=== PATIENT | female | born 1945 | race Caucasian/White ===

== ENCOUNTER 2016-11-24 13:29 | Outpatient (CLI) | payer MEDICARE ==
[2016-11-24 13:58] LABS: Hemoglobin 12.2 g/dL (12.0-16.0)
[2016-11-25 19:21] LABS: HBCM Index 0.11 S/CO (0-0.79); HBSAg Index 0.37 S/CO (0-0.99); Hep A IgM AB Non-Reactive (NonReactive); Hep A IgM S/CO 0.11 S/CO (0-0.79); Hep B Surf Ag Non-Reactive S/CO (NonReactive); Hep C IgG Ab Non-Reactive (NonReactive); Hep C Index 0.07 S/CO (0-0.79); Hepatitis B Core IGM Abs Non-Reactive (NonReactive)
[2016-11-27 07:22] LABS: Antinuclear AB Negative (Negative)
[2016-11-29 12:11] LABS: Mitochondrial (M2) Antibody 5.5 Units (0.0-20.0)
== END 2016-11-24 13:30 | disposition home or self-care (01) ==
LOC: MADLAB 13:29
PROVIDERS: ATTEND Internal Medicine Gastroenterology
DX: D50.9 Iron deficiency anemia, unspecified (principal); R74.8 Abnormal levels of other serum enzymes
CPT/HCPCS: 36415; 80074; 83516; 85014; 85018; 86038

== ENCOUNTER 2017-04-06 14:17 | Emergency (ER) | payer MEDICARE | END 2017-04-06 14:45 | disposition home or self-care (01) | LOC: MADERS 14:17 | DX: S00.03XA Contusion of scalp, initial encounter (principal); I10 Essential (primary) hypertension; V89.0XXA Person injured in unspecified motor-vehicle accident, nontraffic, initial encounter; I25.10 Atherosclerotic heart disease of native coronary artery without angina pectoris; E11.9 Type 2 diabetes mellitus without complications; G40.909 Epilepsy, unspecified, not intractable, without status epilepticus | CPT/HCPCS: 99283 ==

== ENCOUNTER 2018-06-25 13:00 | Emergency (ER) | payer MEDICARE, OTHER ==
[2018-06-25] MEDS ORDERED: Ibuprofen 400 MG TAB ONE (13:27)
[2018-06-25] MEDS ORDERED: HYDROcodone/Acetaminophen 5/325 mg Tablet ONE (13:27)
--- NOTE | 2018-06-25 13:48 | RAD ---
FOUR VIEWS OF THE LEFT ELBOW: DATE: 06/25/18. COMPARISON: None. HISTORY: Fall with pain. FINDINGS: The lateral examination demonstrates no definite elbow joint effusion. No displaced fracture or evid ence of dislocation is seen. IMPRESSION: No displaced fracture or definite elbow joint effusion. A followup study in 7-10 days may be benefic ial if symptoms persist. POS: MERI
== END 2018-06-25 14:10 | disposition home or self-care (01) ==
LOC: MADERS 13:00
DX: S50.02XA Contusion of left elbow, initial encounter (principal); I25.10 Atherosclerotic heart disease of native coronary artery without angina pectoris; R73.03 Prediabetes; G40.909 Epilepsy, unspecified, not intractable, without status epilepticus; Z79.899 Other long term (current) drug therapy; W18.30XA Fall on same level, unspecified, initial encounter

== ENCOUNTER 2018-10-02 13:21 | Inpatient (IN) | payer MEDICARE ==
[2018-10-02] MEDS: Calcium Carbonate + Vit D 1 TAB PO SCH (20:16)
[2018-10-02] MEDS: Famotidine 20 MG TAB PO SCH (20:16)
[2018-10-02] MEDS: DILANTIN 100 MG PO SCH (20:21)
--- NOTE | 2018-10-03 03:34 | HP ---
ADMITTING PHYSICIAN: Josi Randle MD PRIMARY CARE PHYSICIAN: Mona Covington, nurse practitioner. REASON FOR ADMISSION: For skilled rehabilitation at [facility], status post physical deconditioning due to ataxia secondary to Dilantin toxicity. HISTORY OF PRESENT ILLNESS: Ms. Aggarwal is a 73-year-old female, who has a history of epilepsy and on Dilantin for a longtime. The patient lives at home with her and daughter. She states that for the past couple of weeks, she had noted some gait imbalance needing her to require assistance for ambulation and she also noted some tremors, so the patient presented to the emergency room on 09/28/2018. The patient was admitted on the neurological floor. Initial CT of the brain and chest x-ray were unremarkable. MRI of the brain was also negative. Echocardiogram was normal, and neurologist was consulted and the patient was noted to have Dilantin toxicity causing the ataxia. The patient's Dilantin 200 mg twice a day was held. They noted that toxicity was most likely secondary to recent levothyroxine causing drug-drug interaction. The patient had been on long-time Dilantin and did not want to change this medicine, so Dilantin was held while levels were monitored closely. The patient's gait improved, and her Dilantin level slowly improved also. By day of discharge from [facility], her Dilantin level decreased to 20.8. The patient, under the care of the neurologist, was restarted on Dilantin 100 mg p.o. b.i.d. During hospitalization, she was also noted to have elevated blood pressure. Hydrochlorothiazide was increased, and amlodipine was also added. Due to physical deconditioning, the decision was made to transfer the patient for inpatient rehabilitation at [facility]. Upon evaluation of the patient today, she denied any concern. She was happy to be in facility. She denies any headache, chest pain, shortness of breath, or dizziness. She is excited to start physical therapy prior to return to her home. She states prior to having the gait imbalance, she was able to ambulate without a walker, she was able to drive, she was able to move around, and she is excited to restart therapy and regain all her strength and mobility back. PAST MEDICAL HISTORY: Hypothyroidism, hypertension, dyslipidemia, and epilepsy. PAST SURGICAL HISTORY: CABG in 2004, cholecystectomy, x2, and appendectomy. ALLERGIES: NO KNOWN DRUG ALLERGIES. MEDICATIONS: 1. Amlodipine 10 mg daily. 2. Lisinopril 40 daily. 3. Levothyroxine 25 mcg daily. 4. Vitamin B12 of 500 mcg daily. 5. Vitamin D3 of 5000 daily. 6. Calcium with vitamin D one tablet b.i.d. 7. Aspirin 81 mg daily. 8. Lipitor 10 mg daily. 9. Dilantin 100 mg b.i.d. 10. Hydrochlorothiazide 25 mg daily. 11. Folic acid 1 mg p.o. daily. CODE STATUS: The patient is a full code. SOCIAL HISTORY: The patient lives in a small trailer house with her family. She denies any tobacco, alcohol, or illicit drug use. FAMILY HISTORY: Positive for diabetes, heart disease in several family members , and her mother had lung cancer. PHYSICAL EXAMINATION: VITAL SIGNS: Temperature 98.3, pulse 80, respirations 18, O2 sat 99% on room air, and blood pressure 156/71. GENERAL: The patient is alert, awake, and oriented x3. No acute distress. Sitting up in her bedside. HEENT: Normocephalic, atraumatic. Pupils are round and reactive to light. Sclerae anicteric. NECK: Supple. No JVD. No thyromegaly. No carotid bruit. LUNGS: Clear to ascultation bilaterally. No rhonchi or rales. HEART: S1 and S2 regular. No murmurs, gallops, or rubs. ABDOMEN: Positive bowel sounds. Soft, nontender, and nondistended. No organomegaly. BACK: Unremarkable. No CVA tenderness. EXTREMITIES: No calf edema or swelling. No erythema. SKIN: No skin rash. NEUROLOGICAL: The patient is alert, awake, and oriented x3. Cranial nerves 2 through 12 grossly intact. No focal deficits. REVIEW OF SYSTEMS: GENERAL: The patient denies any fever or chills. Complains of generalized weakness. HEENT: Denies nasal congestion, nosebleed, trouble swallowing, or oral pain. CHEST: Denies chest pain, shortness of breath, palpitation, or dizziness. RESPIRATORY: Denies cough, shortness of breath, or wheezing. ABDOMEN: Denies abdominal pain, nausea, vomiting, or constipation. GENITOURINARY: Denies dysuria or hematuria. NEUROLOGIC: No focal deficits. PSYCHIATRY: No hallucination or delusion. SKIN: No bruising or easy bleeding. ASSESSMENT: 1. Physical deconditioning. 2. Ataxia due to Dilantin toxicity, improving. 3. Hypertension, improving. 4. Hypothyroidism. 5. Epilepsy. 6. Dyslipidemia. 7. Gait instability. PLAN: The patient is being admitted to [facility] for skilled rehabilitation and gait strengthening. We will consult Physical Therapy for strengthening and in order to get modified independence with her gait and Occupational Therapy to help with activities of daily living. We will restart the patient's Dilantin at 100 b.i.d. We will monitor levels closely. We will place the patient on seizure precautions. We will resume all home medications. We will monitor her blood pressure closely due to the new increase in her hydrochlorothiazide and addition of amlodipine. We will place the patient on Pepcid for GI prophylaxis and compression stockings for DVT prophylaxis. ESTIMATED LENGTH OF STAY: 1 to 2 weeks. DISPOSITION: Home. CODE STATUS: Full code. Job ID: [id number] [id number]
[2018-10-03] MEDS: Levothyroxine Sodium 25 MCG TAB PO SCH (05:22)
[2018-10-03] MEDS: Amlodipine 5 MG TAB PO SCH (08:08)
[2018-10-03] MEDS: Folic Acid 1 MG TAB PO SCH (08:08)
[2018-10-03] MEDS: Aspirin 81 mg Enteric Coated Tablet PO SCH (08:08)
[2018-10-03] MEDS: Lisinopril 10 MG TAB PO SCH (08:11)
[2018-10-03] MEDS: Cyanocobalamin (Vitamin B-12) 1,000 MCG TAB PO SCH (08:11)
[2018-10-03] MEDS: Famotidine 20 MG TAB PO SCH ×2 (08:11→20:50)
[2018-10-03] MEDS: Atorvastatin Calcium 10 MG TAB PO SCH (08:11)
[2018-10-03] MEDS: DILANTIN 100 MG PO SCH ×2 (08:12→20:51)
[2018-10-03] MEDS: Calcium Carbonate + Vit D 1 TAB PO SCH ×2 (08:12→20:50)
[2018-10-03] MEDS: Acetaminophen 325 MG TAB PO PRN ×2 (11:44→20:52)
[2018-10-03] MEDS: Ondansetron ODT 4 MG TAB PO PRN (14:02)
[2018-10-03] MEDS: Ibuprofen 800 MG TAB PO PRN (15:22)
[2018-10-04] MEDS: Levothyroxine Sodium 25 MCG TAB PO SCH (05:11)
[2018-10-04] MEDS: Cyanocobalamin (Vitamin B-12) 1,000 MCG TAB PO SCH (08:30)
[2018-10-04] MEDS: Lisinopril 10 MG TAB PO SCH (08:30)
[2018-10-04] MEDS: Folic Acid 1 MG TAB PO SCH (08:31)
[2018-10-04] MEDS: Atorvastatin Calcium 10 MG TAB PO SCH (08:31)
[2018-10-04] MEDS: Calcium Carbonate + Vit D 1 TAB PO SCH ×2 (08:31→20:06)
[2018-10-04] MEDS: Amlodipine 5 MG TAB PO SCH (08:31)
[2018-10-04] MEDS: Famotidine 20 MG TAB PO SCH ×2 (08:31→20:06)
[2018-10-04] MEDS: DILANTIN 100 MG PO SCH ×2 (08:31→20:06)
[2018-10-04] MEDS: Aspirin 81 mg Enteric Coated Tablet PO SCH (08:31)
[2018-10-04] MEDS: Ibuprofen 800 MG TAB PO PRN (22:23)
[2018-10-05] MEDS: Levothyroxine Sodium 25 MCG TAB PO SCH (05:42)
[2018-10-05] MEDS: Lisinopril 10 MG TAB PO SCH (08:48)
[2018-10-05] MEDS: DILANTIN 100 MG PO SCH (08:48)
[2018-10-05] MEDS: Cyanocobalamin (Vitamin B-12) 1,000 MCG TAB PO SCH (08:49)
[2018-10-05] MEDS: Amlodipine 5 MG TAB PO SCH (08:50)
[2018-10-05] MEDS: Famotidine 20 MG TAB PO SCH ×2 (08:50→20:32)
[2018-10-05] MEDS: Aspirin 81 mg Enteric Coated Tablet PO SCH (08:50)
[2018-10-05] MEDS: Calcium Carbonate + Vit D 1 TAB PO SCH ×2 (08:50→20:32)
[2018-10-05] MEDS: Folic Acid 1 MG TAB PO SCH (08:50)
[2018-10-05] MEDS: Atorvastatin Calcium 10 MG TAB PO SCH (08:53)
[2018-10-05] MEDS: Ondansetron ODT 4 MG TAB PO PRN ×2 (10:20→20:37)
[2018-10-05] MEDS: PATIENT'S HOME MEDICATION PO SCH ×2 (14:48→20:32)
[2018-10-05] MEDS: Acetaminophen 325 MG TAB PO PRN (20:36)
[2018-10-06] MEDS: Levothyroxine Sodium 25 MCG TAB PO SCH (05:15)
[2018-10-06] MEDS: Atorvastatin Calcium 10 MG TAB PO SCH (08:55)
[2018-10-06] MEDS: Calcium Carbonate + Vit D 1 TAB PO SCH ×2 (08:56→20:30)
[2018-10-06] MEDS: Aspirin 81 mg Enteric Coated Tablet PO SCH (08:56)
[2018-10-06] MEDS: Cyanocobalamin (Vitamin B-12) 1,000 MCG TAB PO SCH (08:56)
[2018-10-06] MEDS: Famotidine 20 MG TAB PO SCH ×2 (08:57→20:30)
[2018-10-06] MEDS: Amlodipine 5 MG TAB PO SCH (08:57)
[2018-10-06] MEDS: Lisinopril 10 MG TAB PO SCH (08:57)
[2018-10-06] MEDS: Folic Acid 1 MG TAB PO SCH (08:58)
[2018-10-06] MEDS: PATIENT'S HOME MEDICATION PO SCH ×3 (08:59→20:30)
[2018-10-06] MEDS: Acetaminophen 325 MG TAB PO PRN (22:15)
[2018-10-06] MEDS: Melatonin 3 MG TAB PO SCH (22:15)
[2018-10-07] MEDS: Levothyroxine Sodium 25 MCG TAB PO SCH (05:23)
[2018-10-07] MEDS: PATIENT'S HOME MEDICATION PO SCH ×3 (08:35→20:38)
[2018-10-07] MEDS: Lisinopril 10 MG TAB PO SCH (08:36)
[2018-10-07] MEDS: Famotidine 20 MG TAB PO SCH ×2 (08:36→20:34)
[2018-10-07] MEDS: Calcium Carbonate + Vit D 1 TAB PO SCH ×2 (08:36→20:34)
[2018-10-07] MEDS: Aspirin 81 mg Enteric Coated Tablet PO SCH (08:37)
[2018-10-07] MEDS: Folic Acid 1 MG TAB PO SCH (08:37)
[2018-10-07] MEDS: Cyanocobalamin (Vitamin B-12) 1,000 MCG TAB PO SCH (08:37)
[2018-10-07] MEDS: Amlodipine 5 MG TAB PO SCH (08:38)
[2018-10-07] MEDS: Atorvastatin Calcium 10 MG TAB PO SCH (08:38)
[2018-10-07] MEDS: Melatonin 3 MG TAB PO SCH (20:34)
[2018-10-07] MEDS: Acetaminophen 325 MG TAB PO PRN (20:37)
[2018-10-08] MEDS: Levothyroxine Sodium 25 MCG TAB PO SCH (05:14)
[2018-10-08] MEDS: Lisinopril 10 MG TAB PO SCH (08:26)
[2018-10-08] MEDS: Amlodipine 5 MG TAB PO SCH (08:26)
[2018-10-08] MEDS: Aspirin 81 mg Enteric Coated Tablet PO SCH (08:27)
[2018-10-08] MEDS: Folic Acid 1 MG TAB PO SCH (08:27)
[2018-10-08] MEDS: Famotidine 20 MG TAB PO SCH ×2 (08:27→20:16)
[2018-10-08] MEDS: Cyanocobalamin (Vitamin B-12) 1,000 MCG TAB PO SCH (08:27)
[2018-10-08] MEDS: Calcium Carbonate + Vit D 1 TAB PO SCH ×2 (08:27→20:16)
[2018-10-08] MEDS: PATIENT'S HOME MEDICATION PO SCH ×3 (08:28→20:17)
[2018-10-08] MEDS: Atorvastatin Calcium 10 MG TAB PO SCH (08:28)
[2018-10-08] MEDS: Melatonin 3 MG TAB PO SCH (20:16)
[2018-10-08] MEDS: Acetaminophen 325 MG TAB PO PRN (20:18)
[2018-10-09] MEDS: Levothyroxine Sodium 25 MCG TAB PO SCH (05:22)
[2018-10-09] MEDS: Lisinopril 10 MG TAB PO SCH (08:22)
[2018-10-09] MEDS: PATIENT'S HOME MEDICATION PO SCH ×3 (08:22→20:54)
[2018-10-09] MEDS: Folic Acid 1 MG TAB PO SCH (08:23)
[2018-10-09] MEDS: Aspirin 81 mg Enteric Coated Tablet PO SCH (08:23)
[2018-10-09] MEDS: Amlodipine 5 MG TAB PO SCH (08:24)
[2018-10-09] MEDS: Calcium Carbonate + Vit D 1 TAB PO SCH ×2 (08:24→20:53)
[2018-10-09] MEDS: Atorvastatin Calcium 10 MG TAB PO SCH (08:25)
[2018-10-09] MEDS: Cyanocobalamin (Vitamin B-12) 1,000 MCG TAB PO SCH (08:25)
[2018-10-09] MEDS: Famotidine 20 MG TAB PO SCH ×2 (08:25→20:53)
[2018-10-09] MEDS: Acetaminophen 325 MG TAB PO PRN ×2 (14:55→20:55)
[2018-10-09] MEDS: Melatonin 3 MG TAB PO SCH (20:53)
[2018-10-10] MEDS: Levothyroxine Sodium 25 MCG TAB PO SCH (06:08)
[2018-10-10] MEDS: Cyanocobalamin (Vitamin B-12) 1,000 MCG TAB PO SCH (08:31)
[2018-10-10] MEDS: Lisinopril 10 MG TAB PO SCH (08:31)
[2018-10-10] MEDS: Aspirin 81 mg Enteric Coated Tablet PO SCH (08:32)
[2018-10-10] MEDS: Calcium Carbonate + Vit D 1 TAB PO SCH ×2 (08:32→20:51)
[2018-10-10] MEDS: Folic Acid 1 MG TAB PO SCH (08:32)
[2018-10-10] MEDS: Atorvastatin Calcium 10 MG TAB PO SCH (08:32)
[2018-10-10] MEDS: Amlodipine 5 MG TAB PO SCH (08:32)
[2018-10-10] MEDS: PATIENT'S HOME MEDICATION PO SCH ×3 (08:32→20:51)
[2018-10-10] MEDS: Famotidine 20 MG TAB PO SCH ×2 (08:32→20:51)
[2018-10-10] MEDS ORDERED: Bisacodyl 10 MG SUPP PR PRN (17:54)
[2018-10-10] MEDS: Melatonin 3 MG TAB PO SCH (20:51)
[2018-10-10] MEDS: Acetaminophen 325 MG TAB PO PRN (20:55)
[2018-10-11] MEDS: Levothyroxine Sodium 25 MCG TAB PO SCH (05:28)
[2018-10-11] MEDS: PATIENT'S HOME MEDICATION PO SCH ×3 (08:25→20:37)
[2018-10-11] MEDS: Cyanocobalamin (Vitamin B-12) 1,000 MCG TAB PO SCH (08:25)
[2018-10-11] MEDS: Atorvastatin Calcium 10 MG TAB PO SCH (08:25)
[2018-10-11] MEDS: Polyethylene Glycol 3350 17 GM Packet PO SCH (08:26)
[2018-10-11] MEDS: Amlodipine 5 MG TAB PO SCH (08:26)
[2018-10-11] MEDS: Folic Acid 1 MG TAB PO SCH (08:26)
[2018-10-11] MEDS: Calcium Carbonate + Vit D 1 TAB PO SCH ×2 (08:26→20:35)
[2018-10-11] MEDS: Lisinopril 10 MG TAB PO SCH (08:26)
[2018-10-11] MEDS: Famotidine 20 MG TAB PO SCH ×2 (08:27→20:36)
[2018-10-11] MEDS: Aspirin 81 mg Enteric Coated Tablet PO SCH (08:27)
[2018-10-11] MEDS: Melatonin 3 MG TAB PO SCH (20:36)
[2018-10-11] MEDS: Acetaminophen 325 MG TAB PO PRN (20:36)
[2018-10-12] MEDS: Levothyroxine Sodium 25 MCG TAB PO SCH (05:59)
[2018-10-12] MEDS: Amlodipine 5 MG TAB PO SCH (08:22)
[2018-10-12] MEDS: Aspirin 81 mg Enteric Coated Tablet PO SCH (08:22)
[2018-10-12] MEDS: Atorvastatin Calcium 10 MG TAB PO SCH (08:22)
[2018-10-12] MEDS: Folic Acid 1 MG TAB PO SCH (08:23)
[2018-10-12] MEDS: Cyanocobalamin (Vitamin B-12) 1,000 MCG TAB PO SCH (08:23)
[2018-10-12] MEDS: Calcium Carbonate + Vit D 1 TAB PO SCH ×2 (08:23→20:41)
[2018-10-12] MEDS: Polyethylene Glycol 3350 17 GM Packet PO SCH (08:24)
[2018-10-12] MEDS: Lisinopril 10 MG TAB PO SCH (08:24)
[2018-10-12] MEDS: PATIENT'S HOME MEDICATION PO SCH ×3 (08:24→20:42)
[2018-10-12] MEDS: Famotidine 20 MG TAB PO SCH ×2 (08:24→20:41)
[2018-10-12] MEDS: Melatonin 3 MG TAB PO SCH (20:41)
[2018-10-12] MEDS: Acetaminophen 325 MG TAB PO PRN (20:43)
[2018-10-13] MEDS: Levothyroxine Sodium 25 MCG TAB PO SCH (05:25)
[2018-10-13] MEDS: Polyethylene Glycol 3350 17 GM Packet PO SCH (08:50)
[2018-10-13] MEDS: Lisinopril 10 MG TAB PO SCH (08:51)
[2018-10-13] MEDS: Calcium Carbonate + Vit D 1 TAB PO SCH ×2 (08:52→20:45)
[2018-10-13] MEDS: Famotidine 20 MG TAB PO SCH ×2 (08:52→20:45)
[2018-10-13] MEDS: Atorvastatin Calcium 10 MG TAB PO SCH (08:52)
[2018-10-13] MEDS: Cyanocobalamin (Vitamin B-12) 1,000 MCG TAB PO SCH (08:52)
[2018-10-13] MEDS: Aspirin 81 mg Enteric Coated Tablet PO SCH (08:53)
[2018-10-13] MEDS: PATIENT'S HOME MEDICATION PO SCH ×3 (08:53→20:46)
[2018-10-13] MEDS: Amlodipine 5 MG TAB PO SCH (08:53)
[2018-10-13] MEDS: Folic Acid 1 MG TAB PO SCH (08:53)
[2018-10-13] MEDS: Acetaminophen 325 MG TAB PO PRN ×2 (10:46→20:45)
[2018-10-13] MEDS: Melatonin 3 MG TAB PO SCH (20:45)
[2018-10-14] MEDS: Levothyroxine Sodium 25 MCG TAB PO SCH (05:53)
[2018-10-14] MEDS: Lisinopril 10 MG TAB PO SCH (09:12)
[2018-10-14] MEDS: Polyethylene Glycol 3350 17 GM Packet PO SCH (09:13)
[2018-10-14] MEDS: Amlodipine 5 MG TAB PO SCH (09:14)
[2018-10-14] MEDS: Calcium Carbonate + Vit D 1 TAB PO SCH ×2 (09:15→20:56)
[2018-10-14] MEDS: Atorvastatin Calcium 10 MG TAB PO SCH (09:15)
[2018-10-14] MEDS: Folic Acid 1 MG TAB PO SCH (09:15)
[2018-10-14] MEDS: Cyanocobalamin (Vitamin B-12) 1,000 MCG TAB PO SCH (09:15)
[2018-10-14] MEDS: Famotidine 20 MG TAB PO SCH ×2 (09:16→20:56)
[2018-10-14] MEDS: PATIENT'S HOME MEDICATION PO SCH ×3 (09:16→20:57)
[2018-10-14] MEDS: Aspirin 81 mg Enteric Coated Tablet PO SCH (09:16)
[2018-10-14] MEDS: Melatonin 3 MG TAB PO SCH (20:56)
[2018-10-14] MEDS: Ibuprofen 800 MG TAB PO PRN (21:05)
[2018-10-15] MEDS: Levothyroxine Sodium 25 MCG TAB PO SCH (05:17)
[2018-10-15] MEDS: Lisinopril 10 MG TAB PO SCH (08:58)
[2018-10-15] MEDS: Cyanocobalamin (Vitamin B-12) 1,000 MCG TAB PO SCH (08:58)
[2018-10-15] MEDS: Famotidine 20 MG TAB PO SCH ×2 (08:59→21:02)
[2018-10-15] MEDS: Aspirin 81 mg Enteric Coated Tablet PO SCH (08:59)
[2018-10-15] MEDS: Atorvastatin Calcium 10 MG TAB PO SCH (08:59)
[2018-10-15] MEDS: Folic Acid 1 MG TAB PO SCH (08:59)
[2018-10-15] MEDS: Calcium Carbonate + Vit D 1 TAB PO SCH ×2 (08:59→21:02)
[2018-10-15] MEDS: Polyethylene Glycol 3350 17 GM Packet PO SCH (08:59)
[2018-10-15] MEDS: Amlodipine 5 MG TAB PO SCH (08:59)
[2018-10-15] MEDS: PATIENT'S HOME MEDICATION PO SCH ×3 (09:00→21:03)
[2018-10-15] MEDS: Acetaminophen 325 MG TAB PO PRN (21:03)
[2018-10-15] MEDS: Melatonin 3 MG TAB PO SCH (21:03)
[2018-10-16] MEDS: Ibuprofen 800 MG TAB PO PRN (06:05)
[2018-10-16] MEDS: Levothyroxine Sodium 25 MCG TAB PO SCH (06:05)
[2018-10-16] MEDS: Lisinopril 10 MG TAB PO SCH (10:06)
[2018-10-16] MEDS: Amlodipine 5 MG TAB PO SCH (10:06)
[2018-10-16] MEDS: Famotidine 20 MG TAB PO SCH ×2 (10:07→20:25)
[2018-10-16] MEDS: Calcium Carbonate + Vit D 1 TAB PO SCH ×2 (10:07→20:25)
[2018-10-16] MEDS: Atorvastatin Calcium 10 MG TAB PO SCH (10:08)
[2018-10-16] MEDS: Polyethylene Glycol 3350 17 GM Packet PO SCH (10:08)
[2018-10-16] MEDS: Cyanocobalamin (Vitamin B-12) 1,000 MCG TAB PO SCH (10:08)
[2018-10-16] MEDS: Aspirin 81 mg Enteric Coated Tablet PO SCH (10:08)
[2018-10-16] MEDS: Folic Acid 1 MG TAB PO SCH (10:08)
[2018-10-16] MEDS: PATIENT'S HOME MEDICATION PO SCH ×3 (10:09→20:26)
[2018-10-16] MEDS: Melatonin 3 MG TAB PO SCH (20:25)
[2018-10-16] MEDS: Acetaminophen 325 MG TAB PO PRN (20:33)
[2018-10-17] MEDS: Levothyroxine Sodium 25 MCG TAB PO SCH (05:46)
[2018-10-17] MEDS: Lisinopril 10 MG TAB PO SCH (08:32)
[2018-10-17] MEDS: Amlodipine 5 MG TAB PO SCH (08:32)
[2018-10-17] MEDS: Cyanocobalamin (Vitamin B-12) 1,000 MCG TAB PO SCH (08:32)
[2018-10-17] MEDS: Famotidine 20 MG TAB PO SCH ×2 (08:33→21:12)
[2018-10-17] MEDS: Calcium Carbonate + Vit D 1 TAB PO SCH ×2 (08:33→21:13)
[2018-10-17] MEDS: Folic Acid 1 MG TAB PO SCH (08:33)
[2018-10-17] MEDS: Aspirin 81 mg Enteric Coated Tablet PO SCH (08:33)
[2018-10-17] MEDS: Atorvastatin Calcium 10 MG TAB PO SCH (08:33)
[2018-10-17] MEDS: PATIENT'S HOME MEDICATION PO SCH ×3 (08:34→21:13)
[2018-10-17] MEDS: Polyethylene Glycol 3350 17 GM Packet PO SCH (08:34)
[2018-10-17] MEDS: Melatonin 3 MG TAB PO SCH (21:13)
[2018-10-18] MEDS: Levothyroxine Sodium 25 MCG TAB PO SCH (05:28)
[2018-10-18] MEDS: Lisinopril 10 MG TAB PO SCH (08:24)
[2018-10-18] MEDS: Cyanocobalamin (Vitamin B-12) 1,000 MCG TAB PO SCH (08:24)
[2018-10-18] MEDS: Polyethylene Glycol 3350 17 GM Packet PO SCH (08:24)
[2018-10-18] MEDS: Calcium Carbonate + Vit D 1 TAB PO SCH ×2 (08:25→21:11)
[2018-10-18] MEDS: Amlodipine 5 MG TAB PO SCH (08:25)
[2018-10-18] MEDS: Atorvastatin Calcium 10 MG TAB PO SCH (08:25)
[2018-10-18] MEDS: Aspirin 81 mg Enteric Coated Tablet PO SCH (08:26)
[2018-10-18] MEDS: Famotidine 20 MG TAB PO SCH ×2 (08:26→21:11)
[2018-10-18] MEDS: Folic Acid 1 MG TAB PO SCH (08:27)
[2018-10-18] MEDS: PATIENT'S HOME MEDICATION PO SCH ×3 (08:27→21:12)
[2018-10-18] MEDS: Melatonin 3 MG TAB PO SCH (21:11)
[2018-10-18] MEDS: Acetaminophen 325 MG TAB PO PRN (21:12)
[2018-10-19] MEDS: Levothyroxine Sodium 25 MCG TAB PO SCH (05:27)
[2018-10-19] MEDS: Cyanocobalamin (Vitamin B-12) 1,000 MCG TAB PO SCH (08:26)
[2018-10-19] MEDS: PATIENT'S HOME MEDICATION PO SCH ×3 (08:26→21:01)
[2018-10-19] MEDS: Lisinopril 10 MG TAB PO SCH (08:27)
[2018-10-19] MEDS: Amlodipine 5 MG TAB PO SCH (08:28)
[2018-10-19] MEDS: Calcium Carbonate + Vit D 1 TAB PO SCH ×2 (08:28→21:00)
[2018-10-19] MEDS: Atorvastatin Calcium 10 MG TAB PO SCH (08:29)
[2018-10-19] MEDS: Folic Acid 1 MG TAB PO SCH (08:29)
[2018-10-19] MEDS: Polyethylene Glycol 3350 17 GM Packet PO SCH (08:29)
[2018-10-19] MEDS: Aspirin 81 mg Enteric Coated Tablet PO SCH (08:29)
[2018-10-19] MEDS: Famotidine 20 MG TAB PO SCH ×2 (08:29→21:00)
[2018-10-19 18:02] VITALS: BMI 26.7
[2018-10-19] MEDS: Melatonin 3 MG TAB PO SCH (21:00)
[2018-10-19] MEDS: Acetaminophen 325 MG TAB PO PRN (21:02)
[2018-10-20] MEDS: Levothyroxine Sodium 25 MCG TAB PO SCH (05:57)
[2018-10-20] MEDS: Lisinopril 10 MG TAB PO SCH (08:23)
[2018-10-20] MEDS: Polyethylene Glycol 3350 17 GM Packet PO SCH (08:27)
[2018-10-20] MEDS: Folic Acid 1 MG TAB PO SCH (08:27)
[2018-10-20] MEDS: Amlodipine 5 MG TAB PO SCH (08:27)
[2018-10-20] MEDS: Aspirin 81 mg Enteric Coated Tablet PO SCH (08:27)
[2018-10-20] MEDS: Atorvastatin Calcium 10 MG TAB PO SCH (08:27)
[2018-10-20] MEDS: Calcium Carbonate + Vit D 1 TAB PO SCH (08:27)
[2018-10-20] MEDS: Cyanocobalamin (Vitamin B-12) 1,000 MCG TAB PO SCH (08:27)
[2018-10-20] MEDS: Famotidine 20 MG TAB PO SCH (08:27)
[2018-10-20 08:28] VITALS: BP 148/68
[2018-10-20] MEDS: PATIENT'S HOME MEDICATION PO SCH (08:28)
[2018-10-20 08:38] VITALS: TEMP 98.9
--- NOTE | 2018-10-20 16:32 | DIS ---
DATE OF ADMISSION: 10/02/2018 DATE OF DISCHARGE: 10/20/2018 PRIMARY DIAGNOSIS: Physical deconditioning. SECONDARY DIAGNOSES: 1. Dilantin toxicity. 2. Hypertension. 3. Hypothyroidism. 4. Seizure disorder. HOSPITAL COURSE: This is a pleasant 73-year-old female with history of chronic seizure disorder, who was admitted to [facility] from 09/28 to 10/02 for weakness secondary to acute Dilantin toxicity. The patient's Dilantin was held and she subsequently had improvement of her symptoms. The patient was then transferred to [facility] on 10/02/2018 for a planned physical therapy and occupational therapy for ongoing generalized weakness and deconditioning. Physical Therapy and Occupational Therapy had been following the patient, and she has been doing quite well since admission. She has been ambulatory with a walker and has been walking a total of 600 feet without any issues. Her Dilantin levels have normalized, most recently checked on 10/13/2018 and was 11.6 down from initial toxic level of 34.0 on 09/30/2018. By day of discharge, the patient's vitals remained stable and she was ready for discharge. MEDIATIONS UPON DISCHARGE: 1. Dilantin 100 mg t.i.d. 2. Vitamin B12, 500 mcg daily. 3. Vitamin D3, 5000 units once daily. 4. Levothyroxine 25 mcg once daily. 5. Lisinopril 40 mg once daily. 6. Citracal with vitamin D one tablet twice daily. 7. Aspirin 81 mg daily. 8. Atorvastatin 10 mg once daily. 9. Folic acid 1 mg once daily. 10. Hydrochlorothiazide 25 mg once daily. 11. Amlodipine 10 mg once daily. Of note, this is a new prescription for the patient that was started at [facility]. DIET UPON DISCHARGE: The patient will resume a heart-healthy regular diet. ACTIVITIES UPON DISCHARGE: No restrictions. FOLLOWUP: She will follow up in the [facility] within 2 weeks for repeat Dilantin level and to establish care. Job ID: [id number]
== END 2018-10-20 13:09 | disposition home or self-care (01) | DRG 93 ==
LOC: MADMS 13:43
PROVIDERS: ADMIT Family Medicine; ATTEND Family Medicine
DX: R27.0 Ataxia, unspecified (principal); R53.81 Other malaise; T42.0X5A Adverse effect of hydantoin derivatives, initial encounter; E03.9 Hypothyroidism, unspecified; I10 Essential (primary) hypertension; E78.5 Hyperlipidemia, unspecified; G40.909 Epilepsy, unspecified, not intractable, without status epilepticus; Z95.1 Presence of aortocoronary bypass graft; Z90.49 Acquired absence of other specified parts of digestive tract; Z79.82 Long term (current) use of aspirin; Z79.899 Other long term (current) drug therapy
CPT/HCPCS: 36415; 80185; G8978-GP-CJ; G8979-GP-CI; Q0162

== ENCOUNTER 2019-09-06 14:41 | Outpatient (CLI) | payer MEDICARE, OTHER | END 2019-09-06 14:42 | disposition home or self-care (01) | LOC: MADLABBHPM 14:41 | PROVIDERS: ATTEND Family Medicine | DX: G40.509 Epileptic seizures related to external causes, not intractable, without status epilepticus (principal) | CPT/HCPCS: 36415; 80185 ==

== ENCOUNTER 2020-01-28 16:21 | Emergency (ER) | payer MEDICARE, OTHER ==
[2020-01-28] MEDS ORDERED: Sodium Chloride 0.9% 1,000 ML ONE (16:45)
[2020-01-28 16:51] LABS: #Basophils 0.1 thou/uL (0.0-0.2); #Eosinphils 0.1 thou/uL (0.0-0.7); #Lymphocytes 1.2 thou/uL (1.20-3.40); #Monocytes 0.6 thou/uL (0.11-0.59); #Neutrophils 4.4 thou/uL (1.40-6.50); %Basophils 1.8 % (0.0-1.0); %Eosinophils 1.5 % (0.0-10.0); %Lymphocytes 19.2 % (21.0-51.0); %Monocytes 9.8 % (0.0-10.0); %Neutrophils 67.7 % (42.0-75.0); Hemoglobin 9.8 g/dL (12.0-16.0); Mean Corpuscular HGB CONC 31.7 g/dL (32.0-36.0); Mean Corpuscular Hemoglobin 32.2 pg (27.0-31.0); Mean Corpuscular Volume 101.5 fL (78.0-98.0); Mean Platelet Volume 5.5 fL (7.4-10.4); Platelet Count 324 thou/uL (130-400); RBC Distribution Width 14.1 % (11.5-14.5); Red Blood Cell (RBC) Count 3.04 mill/uL (4.20-5.40); White Blood Cell (WBC) Count 6.4 thou/uL (4.8-10.8)
[2020-01-28 17:08] LABS: ALT (SGPT) 13 U/L (8-55); AST (SGOT) 17 U/L (5-34); Albumin 3.9 g/dL (3.4-4.8); Alkaline Phosphatase 103 U/L (40-110); Anion Gap 16 mmol/L (10-20); BUN (Urea Nitrogen) 27 mg/dL (9.8-20.1); Bilirubin, Total Less than 0.2 mg/dL (0.2-1.2); Calc. Creatinine Clearance 0 mL/min (70-130); Calcium 9.1 mg/dL (7.8-10.44); Chloride 106 mmol/L (98-107); Estimated GFR-MDRD 40; Glucose 102 mg/dL (83-110); Potassium 4.9 mmol/L (3.5-5.1); Protein, Total 5.9 g/dL (6.0-8.3); Sodium 138 mmol/L (136-145)
[2020-01-28 17:13] LABS: Carbon Dioxide 21 mmol/L (23-31)
--- NOTE | 2020-01-28 17:55 | RAD ---
Chest 2 views HISTORY: Dyspnea. Weakness. Possible Covid 19. COMPARISON: 09/28/2018. FINDINGS: Cardiac silhouette and pulmonary vasculature are unremarkable. Mediastinum is midline with aortic calcification and postoperative changes. Old healed granulomatous disease apparent. Subtle ill-defined parenchymal opacity at the right posterior lung base without obscuration of the he midiaphragm. No pneumothorax or pleural fluid. IMPRESSION : Subtle right posterior basilar infiltrate. Clinical correlation regarding other signs and symptoms of nonspecific viral pneumonitis versus bacterial pneumonia is required. Atherosclerosis.
[2020-01-28 19:06] LABS: Bilirubin Negative (Negative); Blood, Urine Negative (Negative); Clarity Clear (Clear); Glucose, Urine (Dipstick) Negative (Negative); Leukocyte Negative (Negative); Nitrite Negative (Negative); Protein, Urine (Dipstick) Negative (Neg-Trace); Urobilinogen 0.2 mg/dL (Less than 2)
== END 2020-01-28 19:10 | disposition home or self-care (01) ==
LOC: MADERS 16:21
DX: F50.89 Other specified eating disorder (principal); D64.9 Anemia, unspecified; E55.9 Vitamin D deficiency, unspecified; E03.9 Hypothyroidism, unspecified; Z20.828 Contact with and (suspected) exposure to other viral communicable diseases; G40.909 Epilepsy, unspecified, not intractable, without status epilepticus; E78.5 Hyperlipidemia, unspecified; E78.00 Pure hypercholesterolemia, unspecified; J30.2 Other seasonal allergic rhinitis; I25.119 Atherosclerotic heart disease of native coronary artery with unspecified angina pectoris; R73.03 Prediabetes; I10 Essential (primary) hypertension; Z79.899 Other long term (current) drug therapy; Z79.82 Long term (current) use of aspirin
CPT/HCPCS: 71046; 80185; 81003; 83605; 84484; 96360; 96361; 99285; U0002; 36415; 80053; 84443; 85025; 87635; J7050; U0003

== ENCOUNTER 2020-04-18 20:25 | Emergency (ER) | payer MEDICARE, OTHER ==
[~2020-04-18 20:25] MED LIST: Iopamidol 370 76% 100 ML VIAL ONE
[2020-04-18] MEDS ORDERED: Ondansetron PF 4 MG/2 ML Vial ONE (20:57)
[2020-04-18] MEDS ORDERED: Sodium Chloride 0.9% 1,000 ML ONE ×2 (20:57→23:06)
[2020-04-18 21:27] LABS: Mean Corpuscular HGB CONC 31.1 g/dL (32.0-36.0); Mean Corpuscular Hemoglobin 33.5 pg (27.0-31.0); Mean Corpuscular Volume 107.8 fL (78.0-98.0); Mean Platelet Volume 6.5 fL (7.4-10.4); Platelet Count 321 thou/uL (130-400); RBC Distribution Width 12.7 % (11.5-14.5); Red Blood Cell (RBC) Count 2.97 mill/uL (4.20-5.40); White Blood Cell (WBC) Count 4.6 thou/uL (4.8-10.8)
[2020-04-18 21:37] LABS: #Basophils 0.1 thou/uL (0.0-0.2); #Eosinphils 0.1 thou/uL (0.0-0.7); #Lymphocytes 1.1 thou/uL (1.20-3.40); #Monocytes 0.6 thou/uL (0.11-0.59); #Neutrophils 2.7 thou/uL (1.40-6.50); %Basophils 1.7 % (0.0-1.0); %Eosinophils 2.1 % (0.0-10.0); %Lymphocytes 23.8 % (21.0-51.0); %Neutrophils 58.5 % (42.0-75.0); MDiff Complete? YES; Macrocytosis SLIGHT = 6-15 cells (100X) (0-5/hpf); Platelet Morphology Comment Appears Adequate
[2020-04-18 21:46] LABS: ALT (SGPT) 14 U/L (8-55); AST (SGOT) 16 U/L (5-34); Albumin 3.8 g/dL (3.4-4.8); Alkaline Phosphatase 88 U/L (40-110); Anion Gap 17 mmol/L (10-20); BUN (Urea Nitrogen) 14 mg/dL (9.8-20.1); Bilirubin, Total Less than 0.2 mg/dL (0.2-1.2); CK (CPK) 30 U/L (29-168); Calc. Creatinine Clearance 0 mL/min (70-130); Carbon Dioxide 18 mmol/L (23-31); Chloride 103 mmol/L (98-107); Estimated GFR-MDRD 75; Globulin 1.9 g/dL (2.4-3.5); Glucose 99 mg/dL (83-110); Lipase 23 U/L (8-78); Potassium 4.6 mmol/L (3.5-5.1); Protein, Total 5.7 g/dL (6.0-8.3); Sodium 133 mmol/L (136-145)
[2020-04-18 22:04] LABS: Bilirubin Negative (Negative); Blood, Urine Negative (Negative); Clarity Clear (Clear); Glucose, Urine (Dipstick) Negative (Negative); Ketone, Urine Trace mg/dL (Negative); Leukocyte Negative (Negative); Nitrite Negative (Negative); Protein, Urine (Dipstick) Negative (Neg-Trace); Urobilinogen 0.2 mg/dL (Less than 2); pH, Urine 7.5 (5.0-9.0)
--- NOTE | 2020-04-18 22:52 | CT ---
CT ABDOMEN AND PELVIS WITH IV CONTRAST 04/18/2020 CLINICAL INFORMATION: Abdominal pain and bloating COMPARISON: None. Technique: Multiple contiguous axial CT images are obtained through the abdomen and pelvis with IV contrast. Cor onal reformatted images are provided. FINDINGS: Lower Chest: Median sternotomy wires are seen. Small hiatal hernia is present. There is minimal atele ctasis at each lung base. Vessels: Vascular calcifications are seen in the visualized thoracic and abdominal aorta as well as i liac arteries and coronary arteries. Abdomen: Portal vein:Patent Gallbladder: Not visualized likely due to prior cholecystectomy. There is intra and extrahepatic bili neil ductal dilatation with the common duct measuring 2 mm in diameter which is likely attributable to reservoir effect. Liver: within normal limits. Spleen: within normal limits. Pancreas: within normal limits. Adrenals: within normal limits. Kidneys: Subcentimeter too small to characterize hypodense lesion is seen in the superior pole right kidney. There is a lobulated appearance of each kidney which may related to lobulation and/or scarring. Bowel: Colonic diverticulosis is present. Loops of small bowel are normal in caliber. Appendix: Not definitely visualized, but no secondary signs are seen to suggest appendicitis. Peritoneum: There is mild nonspecific haziness of the mesentery. Mesentery and Retroperitoneum: No enlarged mesenteric or retroperitoneal lymph nodes. Abdominal Wall: Few ventral abdominal wall fat-containing hernias are seen in the epigastric region a nd supraumbilical location of the abdomen. Pelvis: Reproductive Organs: Calcified uterine fibroids are visualized. Pelvis within normal limits. Bladder: within normal limits. Bones: Degenerative changes in the spine. Grade 1 anterolisthesis of L4 on L5 is seen related to face t degenerative changes. IMPRESSION: 1. Mild haziness of the mesentery with suggestion of mild venous congestion which can be seen with ea rly portal hypertension. However, the portal vein is normal in caliber, and the liver has a normal appearance without cirrhotic morphology. Exact etiology for mild haziness of the mesentery is uncerta in. 2. Vascular calcifications. 3. Too small to characterize hypodense lesion superior pole right kidney. 4. Postcholecystectomy changes. 5. Fat-containing ventral abdominal wall hernias. 6. Small hiatal hernia.
[2020-04-18] MEDS ORDERED: Lorazepam 2 MG/ML VIAL ONE (23:08)
== END 2020-04-19 00:21 | disposition home or self-care (01) ==
LOC: MADERS 20:25
DX: R11.0 Nausea (principal); I10 Essential (primary) hypertension; R53.81 Other malaise; J30.2 Other seasonal allergic rhinitis; E55.9 Vitamin D deficiency, unspecified; E03.9 Hypothyroidism, unspecified; E78.5 Hyperlipidemia, unspecified; E78.00 Pure hypercholesterolemia, unspecified; M81.0 Age-related osteoporosis without current pathological fracture; I25.119 Atherosclerotic heart disease of native coronary artery with unspecified angina pectoris; R73.09 Other abnormal glucose; G40.909 Epilepsy, unspecified, not intractable, without status epilepticus; Z86.73 Personal history of transient ischemic attack (TIA), and cerebral infarction without residual deficits; Z79.899 Other long term (current) drug therapy; Z79.82 Long term (current) use of aspirin
CPT/HCPCS: 74177; 80053; 81003; 82550; 83605; 83690; 84484; 85025; 93005; 96374; 96375; J2060; J2405; J7050; Q9967

== ENCOUNTER 2020-09-05 15:29 | Emergency (ER) | payer MEDICARE, OTHER ==
--- NOTE | 2020-09-05 17:13 | RAD ---
Chest one view HISTORY: Cough. COMPARISON: 04/25/2020. FINDINGS: Cardiac silhouette is magnified by projection. Pulmonary vasculature are unremarkable. Mediastinum is midline with postoperative changes and aortic calcification. Lungs are somewhat hyperinflated with scattered areas of parenchymal scarring. No lobar consolidation or evidence of pneumothorax. IMPRESSION : Chronic-type findings are stable. No acute process is evident.
[2020-09-05 17:39] LABS: #Basophils 0.1 thou/uL (0.0-0.2); #Lymphocytes 0.6 thou/uL (1.20-3.40); #Monocytes 0.3 thou/uL (0.11-0.59); #Neutrophils 5.2 thou/uL (1.40-6.50); %Basophils 0.9 % (0.0-1.0); %Eosinophils 0.1 % (0.0-10.0); %Lymphocytes 10.4 % (21.0-51.0); %Monocytes 4.6 % (0.0-10.0); Hemoglobin 10.4 g/dL (12.0-16.0); Mean Corpuscular HGB CONC 33.2 g/dL (32.0-36.0); Mean Corpuscular Hemoglobin 32.3 pg (27.0-31.0); Mean Corpuscular Volume 97.2 fL (78.0-98.0); Mean Platelet Volume 6.3 fL (7.4-10.4); Platelet Count 264 thou/uL (130-400); RBC Distribution Width 11.6 % (11.5-14.5); Red Blood Cell (RBC) Count 3.23 mill/uL (4.20-5.40); White Blood Cell (WBC) Count 6.1 thou/uL (4.8-10.8)
[2020-09-05] MEDS ORDERED: Sodium Chloride 0.9% 1,000 ML ONE (17:47)
[2020-09-05 18:03] LABS: ALT (SGPT) 10 U/L (8-55); AST (SGOT) 15 U/L (5-34); Alkaline Phosphatase 112 U/L (40-110); Anion Gap 18 mmol/L (10-20); BUN (Urea Nitrogen) 27 mg/dL (9.8-20.1); Bilirubin, Total Less than 0.2 mg/dL (0.2-1.2); Calc. Creatinine Clearance 0 mL/min (70-130); Calcium 9.3 mg/dL (7.8-10.44); Carbon Dioxide 20 mmol/L (23-31); Chloride 91 mmol/L (98-107); Estimated GFR-MDRD 62; Globulin 2.1 g/dL (2.4-3.5); Glucose 93 mg/dL (83-110); Lipase 37 U/L (8-78); Potassium 4.1 mmol/L (3.5-5.1); Protein, Total 6.1 g/dL (6.0-8.3); Sodium 125 mmol/L (136-145)
[2020-09-05 19:32] LABS: Bilirubin Negative (Negative); Blood, Urine Negative (Negative); Clarity Clear (Clear); Glucose, Urine (Dipstick) Negative (Negative); Ketone, Urine 15 mg/dL (Negative); Leukocyte Negative (Negative); Nitrite Negative (Negative); Protein, Urine (Dipstick) Negative (Neg-Trace); Specific Gravity, Urine 1.025 (1.005-1.030); Urobilinogen 0.2 mg/dL (Less than 2); pH, Urine 5.5 (5.0-9.0)
== END 2020-09-05 21:20 | disposition short-term general hospital (02) ==
LOC: MADERS 15:29
DX: E87.1 Hypo-osmolality and hyponatremia (principal); I10 Essential (primary) hypertension; J30.2 Other seasonal allergic rhinitis; E03.9 Hypothyroidism, unspecified; E55.9 Vitamin D deficiency, unspecified; E78.5 Hyperlipidemia, unspecified; E78.00 Pure hypercholesterolemia, unspecified; I25.10 Atherosclerotic heart disease of native coronary artery without angina pectoris; M81.0 Age-related osteoporosis without current pathological fracture; R73.03 Prediabetes; Z79.899 Other long term (current) drug therapy; Z79.82 Long term (current) use of aspirin; Z86.73 Personal history of transient ischemic attack (TIA), and cerebral infarction without residual deficits
CPT/HCPCS: 71045; 80053; 81003; 83605; 83690; 84484; 85025; 93005; 96360; J7050

== ENCOUNTER 2021-03-16 18:14 | Emergency (ER) | payer MEDICARE, OTHER ==
[~2021-03-16 18:14] MED LIST changes: -Iopamidol 370 76% 100 ML VIAL ONE; +Sodium Chloride 0.9% 1,000 ML BAG ONE
[2021-03-16 19:00] LABS: #Basophils 0.1 thou/uL (0.0-0.2); #Lymphocytes 0.4 thou/uL (1.20-3.40); #Monocytes 1.1 thou/uL (0.11-0.59); #Neutrophils 13.9 thou/uL (1.40-6.50); %Basophils 0.4 % (0.0-1.0); %Eosinophils 0.2 % (0.0-10.0); %Lymphocytes 2.5 % (21.0-51.0); %Monocytes 7.2 % (0.0-10.0); %Neutrophils 89.7 % (42.0-75.0); Mean Corpuscular Hemoglobin 32.4 pg (27.0-31.0); Mean Corpuscular Volume 104.6 fL (78.0-98.0); Mean Platelet Volume 7.5 fL (7.4-10.4); Platelet Count 180 thou/uL (130-400); RBC Distribution Width 12.5 % (11.5-14.5); Red Blood Cell (RBC) Count 2.78 mill/uL (4.20-5.40); White Blood Cell (WBC) Count 15.5 thou/uL (4.8-10.8)
[2021-03-16 19:15] LABS: ALT (SGPT) 14 U/L (8-55); AST (SGOT) 19 U/L (5-34); Albumin 3.7 g/dL (3.4-4.8); Alkaline Phosphatase 102 U/L (40-110); Anion Gap 15 mmol/L (10-20); BUN (Urea Nitrogen) 52 mg/dL (9.8-20.1); Bilirubin, Total 0.2 mg/dL (0.2-1.2); CK (CPK) 34 U/L (29-168); Calc. Creatinine Clearance 0 mL/min (70-130); Calcium 9.3 mg/dL (7.8-10.44); Carbon Dioxide 18 mmol/L (23-31); Chloride 105 mmol/L (98-107); Globulin 2.4 g/dL (2.4-3.5); Glucose 121 mg/dL (83-110); Magnesium 2.2 mg/dL (1.6-2.6); Potassium 5.6 mmol/L (3.5-5.1); Protein, Total 6.1 g/dL (5.8-8.1); Sodium 132 mmol/L (136-145)
[2021-03-16 19:18] LABS: Bilirubin Negative (Negative); Blood, Urine Negative (Negative); Clarity Clear (Clear); Glucose, Urine (Dipstick) Negative (Negative); Ketone, Urine Negative (Negative); Leukocyte Negative (Negative); Nitrite Negative (Negative); Protein, Urine (Dipstick) Negative (Neg-Trace); Specific Gravity, Urine 1.015 (1.005-1.030); Urobilinogen 0.2 mg/dL (Less than 2)
[2021-03-16] MEDS ORDERED: Ondansetron PF 4 MG/2 ML Vial ONE (20:57)
== END 2021-03-16 21:16 | disposition short-term general hospital (02) ==
LOC: MADERS 18:14
DX: D64.9 Anemia, unspecified (principal); N19 Unspecified kidney failure; E87.5 Hyperkalemia; I10 Essential (primary) hypertension; J30.2 Other seasonal allergic rhinitis; E55.9 Vitamin D deficiency, unspecified; E87.1 Hypo-osmolality and hyponatremia; G40.909 Epilepsy, unspecified, not intractable, without status epilepticus; I25.119 Atherosclerotic heart disease of native coronary artery with unspecified angina pectoris; E03.9 Hypothyroidism, unspecified; E78.5 Hyperlipidemia, unspecified; E78.00 Pure hypercholesterolemia, unspecified; M81.0 Age-related osteoporosis without current pathological fracture; R73.09 Other abnormal glucose; Z86.73 Personal history of transient ischemic attack (TIA), and cerebral infarction without residual deficits; Z79.82 Long term (current) use of aspirin; Z79.899 Other long term (current) drug therapy
CPT/HCPCS: 36415; 51701; 71046; 80053; 81003; 82550; 83605; 83735; 83880; 84484; 85025; 93005; 94760; 96374; J2405; J7050

== ENCOUNTER 2021-08-29 14:56 | Emergency (ER) | payer MEDICARE, OTHER | END 2021-08-29 17:16 | disposition home or self-care (01) | LOC: MADERS 14:56 | DX: M23.300 Other meniscus derangements, unspecified lateral meniscus, right knee (principal); M23.303 Other meniscus derangements, unspecified medial meniscus, right knee; I10 Essential (primary) hypertension; I25.10 Atherosclerotic heart disease of native coronary artery without angina pectoris; G40.909 Epilepsy, unspecified, not intractable, without status epilepticus; E03.9 Hypothyroidism, unspecified; E78.5 Hyperlipidemia, unspecified; Z95.5 Presence of coronary angioplasty implant and graft ==

== ENCOUNTER 2022-04-10 14:49 | Emergency (ER) | payer MEDICARE, OTHER ==
[2022-04-10 15:50] LABS: #Basophils 0.1 thou/uL (0.0-0.2); #Lymphocytes 0.5 thou/uL (1.20-3.40); #Monocytes 0.3 thou/uL (0.11-0.59); #Neutrophils 4.3 thou/uL (1.40-6.50); %Basophils 1.3 % (0.0-1.0); %Eosinophils 0.3 % (0.0-10.0); %Monocytes 6.1 % (0.0-10.0); %Neutrophils 83.2 % (42.0-75.0); Hemoglobin 11.4 g/dL (12.0-16.0); Mean Corpuscular HGB CONC 32.9 g/dL (32.0-36.0); Mean Corpuscular Hemoglobin 31.5 pg (27.0-31.0); Mean Corpuscular Volume 95.7 fL (78.0-98.0); Platelet Count 162 thou/uL (130-400); RBC Distribution Width 11.5 % (11.5-14.5); Red Blood Cell (RBC) Count 3.61 mill/uL (4.20-5.40); White Blood Cell (WBC) Count 5.2 thou/uL (4.8-10.8)
[2022-04-10 16:03] LABS: ALT (SGPT) 14 U/L (8-55); AST (SGOT) 19 U/L (5-34); Albumin 3.7 g/dL (3.4-4.8); Alkaline Phosphatase 90 U/L (40-110); Anion Gap 25 mmol/L (10-20); BUN (Urea Nitrogen) 37 mg/dL (9.8-20.1); Bilirubin, Total 0.3 mg/dL (0.2-1.2); Calc. Creatinine Clearance 0 mL/min (70-130); Calcium 8.7 mg/dL (7.8-10.44); Carbon Dioxide 15 mmol/L (23-31); Chloride 102 mmol/L (98-107); Globulin 1.8 g/dL (2.4-3.5); Glucose 64 mg/dL (83-110); Lipase 19 U/L (8-78); Potassium 3.9 mmol/L (3.5-5.1); Protein, Total 5.5 g/dL (5.8-8.1); Sodium 138 mmol/L (136-145)
== END 2022-04-10 17:30 | disposition home or self-care (01) ==
LOC: MADERS 14:49
DX: U07.1 COVID-19 (principal); K52.9 Noninfective gastroenteritis and colitis, unspecified; E86.0 Dehydration; I10 Essential (primary) hypertension; E03.9 Hypothyroidism, unspecified; E78.5 Hyperlipidemia, unspecified
CPT/HCPCS: 36415; 71045; 80053; 83605; 83690; 84484; 85025; 93005; U0003; U0005

== ENCOUNTER 2023-09-24 14:14 | Emergency (ER) | payer MEDICARE, OTHER ==
[2023-09-24 15:06] LABS: #Basophils 0.1 thou/uL (0.0-0.2); #Eosinphils 0.2 thou/uL (0.0-0.7); #Monocytes 0.3 thou/uL (0.11-0.59); #Neutrophils 3.4 thou/uL (1.40-6.50); %Basophils 1.2 % (0.0-1.0); %Eosinophils 4.8 % (0.0-10.0); %Lymphocytes 19.1 % (21.0-51.0); %Monocytes 6.4 % (0.0-10.0); %Neutrophils 68.5 % (42.0-75.0); Hematocrit 34.2 % (36.0-47.0); Hemoglobin 11.2 g/dL (12.0-16.0); Mean Corpuscular HGB CONC 32.7 g/dL (32.0-36.0); Mean Corpuscular Hemoglobin 33.8 pg (27.0-31.0); Mean Corpuscular Volume 103.3 fl (78.0-98.0); Mean Platelet Volume 7.4 fL (7.4-10.4); Platelet Count 148 10x3/uL (130-400); RBC Distribution Width 12.3 % (11.5-14.5); Red Blood Cell (RBC) Count 3.31 mill/uL (4.20-5.40)
[2023-09-24 15:26] LABS: ALT (SGPT) 11 U/L (8-55); AST (SGOT) 18 U/L (5-34); Albumin 4.1 g/dL (3.4-4.8); Alkaline Phosphatase 67 U/L (40-110); Anion Gap 17 mmol/L (10-20); BUN (Urea Nitrogen) 47 mg/dL (9.8-20.1); Bilirubin, Total 0.4 mg/dL (0.2-1.2); Calc. Creatinine Clearance 0 mL/min (70-130); Calcium 9.8 mg/dL (7.8-10.44); Carbon Dioxide 24 mmol/L (23-31); Chloride 104 mmol/L (98-107); Estimated GFR 28; Glucose 102 mg/dL (83-110); Potassium 3.6 mmol/L (3.5-5.1); Protein, Total 6.1 g/dL (5.8-8.1); Sodium 141 mmol/L (136-145)
[2023-09-24 15:28] LABS: Troponin I 0.013 ng/mL (< 0.028)
[2023-09-24 16:10] LABS: Bilirubin Negative (Negative); Blood, Urine Negative (Negative); CAUTI Indications for Culture Dysuria,urgency,freq; Clarity Hazy (Clear); Glucose, Urine (Dipstick) Negative (Negative); Ketone, Urine Negative (Negative); Leukocyte Small (Negative); Nitrite Negative (Negative); Protein, Urine (Dipstick) Negative (Neg-Trace); Urobilinogen 0.2 mg/dL (Less than 2); pH, Urine 5.5 (5.0-9.0)
[2023-09-24 16:16] LABS: Bacteria/HPF 3+ HPF (None Seen); RBC/HPF 0-3 HPF (0-3); Squamous Epithelial 0-3 HPF (0-3); WBC/HPF 21-50 HPF (0-3)
[2023-09-24] MEDS ORDERED: Lidocaine 1% PF 5 ML VIAL ONE (16:47)
[2023-09-24] MEDS ORDERED: cefTRIAXone (ROCEPHIN) 1 GM VIAL ONE (16:47)
== END 2023-09-24 16:53 | disposition home or self-care (01) ==
LOC: MADERS 14:14
DX: N39.0 Urinary tract infection, site not specified (principal); I25.10 Atherosclerotic heart disease of native coronary artery without angina pectoris; I11.0 Hypertensive heart disease with heart failure; I50.9 Heart failure, unspecified; K21.9 Gastro-esophageal reflux disease without esophagitis; E78.00 Pure hypercholesterolemia, unspecified; Z79.82 Long term (current) use of aspirin; Z79.899 Other long term (current) drug therapy
CPT/HCPCS: 36415; 71045; 80053; 81001; 84484; 85025; 96372; 99285; J0696

== ENCOUNTER 2024-06-11 13:20 | Emergency (ER) | payer MEDICARE ==
[2024-06-11 14:01] LABS: #Basophils 0.1 thou/uL (0.0-0.2); #Eosinphils 0.2 thou/uL (0.0-0.7); #Lymphocytes 0.9 thou/uL (1.20-3.40); #Monocytes 0.5 thou/uL (0.11-0.59); #Neutrophils 7.6 thou/uL (1.40-6.50); %Basophils 1.4 % (0.0-1.0); %Eosinophils 2.6 % (0.0-10.0); %Lymphocytes 9.7 % (21.0-51.0); %Monocytes 5.3 % (0.0-10.0); %Neutrophils 80.9 % (42.0-75.0); Hematocrit 30.4 % (36.0-47.0); Hemoglobin 9.5 g/dL (12.0-16.0); Mean Corpuscular HGB CONC 31.1 g/dL (32.0-36.0); Mean Corpuscular Hemoglobin 31.5 pg (27.0-31.0); Mean Corpuscular Volume 101.4 fl (78.0-98.0); Mean Platelet Volume 5.5 fL (7.4-10.4); Platelet Count 360 10x3/uL (130-400); White Blood Cell (WBC) Count 9.4 10x3/uL (4.8-10.8)
[2024-06-11 14:09] LABS: ALT (SGPT) Less than 7 U/L (8-55); AST (SGOT) 20 U/L (5-34); Albumin 2.7 g/dL (3.4-4.8); Alkaline Phosphatase 83 U/L (40-110); Anion Gap 26 mmol/L (10-20); BUN (Urea Nitrogen) 16 mg/dL (9.8-20.1); Bilirubin, Total Less than 0.2 mg/dL (0.2-1.2); CK (CPK) 393 U/L (29-168); Calc. Creatinine Clearance 0 mL/min (70-130); Calcium 8.3 mg/dL (7.8-10.44); Chloride 104 mmol/L (98-107); Estimated GFR 31; Globulin 2.1 g/dL (2.4-3.5); Glucose 82 mg/dL (83-110); Magnesium 1.5 mg/dL (1.6-2.6); Potassium 2.7 mmol/L (3.5-5.1); Protein, Total 4.8 g/dL (5.8-8.1); Sodium 136 mmol/L (136-145)
[2024-06-11 14:17] LABS: Carbon Dioxide 9 mmol/L (23-31); Troponin I 0.041 ng/mL (< 0.028)
[2024-06-11] MEDS ORDERED: Aspirin Chewable 81 MG TAB ONE (14:55)
[2024-06-11] MEDS ORDERED: Magnesium 2 GM/50 ML BAG (IN WATER) ONE (14:56)
[2024-06-11] MEDS ORDERED: D5 1/2 NS w/20 mEq KCL 1,000 ML ONE (15:02)
[2024-06-11] MEDS ORDERED: cefTRIAXone (ROCEPHIN) 1 GM VIAL ONE (16:07)
[2024-06-11 21:21] LABS: Anion Gap 23 mmol/L (10-20); BUN (Urea Nitrogen) 14 mg/dL (9.8-20.1); Calc. Creatinine Clearance 0 mL/min (70-130); Calcium 8.3 mg/dL (7.8-10.44); Carbon Dioxide 13 mmol/L (23-31); Chloride 103 mmol/L (98-107); Estimated GFR 33; Glucose 107 mg/dL (83-110); Magnesium 2.3 mg/dL (1.6-2.6); Potassium 3.2 mmol/L (3.5-5.1)
[2024-06-11 21:23] LABS: Troponin I 0.026 ng/mL (< 0.028)
[2024-06-11 21:28] LABS: Sodium 136 mmol/L (136-145)
== END 2024-06-11 22:45 | disposition short-term general hospital (02) ==
LOC: MADERS 13:20
DX: R41.82 Altered mental status, unspecified (principal); E16.2 Hypoglycemia, unspecified; E87.6 Hypokalemia; E83.42 Hypomagnesemia; R55 Syncope and collapse; R62.7 Adult failure to thrive; J34.89 Other specified disorders of nose and nasal sinuses; I11.0 Hypertensive heart disease with heart failure; I50.9 Heart failure, unspecified; Z79.899 Other long term (current) drug therapy; Z79.82 Long term (current) use of aspirin
CPT/HCPCS: 70450; 71045; 74176; 80048; 80053; 82550; 82962; 83605; 83735; 83880; 84484 ×2; 85025; 93005; 94760; 96365; 96366; 96367; 99285; J0696; J3475; J3480; 36416; 36415-59

== ENCOUNTER 2024-06-20 12:56 | Inpatient (IN) | payer MEDICARE ==
[2024-06-20 20:27] VITALS: BMI 21.3
[2024-06-20] MEDS ORDERED: Acetaminophen 325 MG TAB PO PRN (21:06)
[2024-06-20 22:12] LABS: Bilirubin Negative (Negative); Blood, Urine Negative (Negative); Glucose, Urine (Dipstick) Negative (Negative); Ketone, Urine Negative (Negative); Leukocyte Trace (Negative); Nitrite Negative (Negative); Protein, Urine (Dipstick) Negative (Neg-Trace)
[2024-06-20 22:18] LABS: Clarity Slightly Cloudy (Clear)
[2024-06-20 22:20] LABS: Bacteria/HPF Rare-Few HPF (None Seen); Squamous Epithelial 0-3 HPF (0-3)
[2024-06-20 22:27] LABS: RBC/HPF 0-3 HPF (0-3)
[2024-06-20 22:29] LABS: WBC/HPF 21-50 HPF (0-3)
[2024-06-20] MEDS: Sodium Bicarbonate Tab 325 MG TAB PO SCH (23:22)
[2024-06-20] MEDS: Tamsulosin HCl 0.4 MG CAP PO SCH (23:22)
[2024-06-20] MEDS: levETIRAcetam 500 MG TAB PO SCH (23:22)
[2024-06-20] MEDS: Sertraline 25 MG TAB PO SCH (23:22)
[2024-06-21 05:08] LABS: #Basophils 0.1 thou/uL (0.0-0.2); #Eosinphils 0.1 thou/uL (0.0-0.7); #Lymphocytes 1.9 thou/uL (1.20-3.40); #Monocytes 0.7 thou/uL (0.11-0.59); #Neutrophils 3.7 thou/uL (1.40-6.50); %Basophils 1.5 % (0.0-1.0); %Lymphocytes 29.6 % (21.0-51.0); %Monocytes 10.1 % (0.0-10.0); %Neutrophils 57.8 % (42.0-75.0); Hematocrit 24.2 % (36.0-47.0); Hemoglobin 7.9 g/dL (12.0-16.0); Mean Corpuscular HGB CONC 32.7 g/dL (32.0-36.0); Mean Corpuscular Hemoglobin 33.2 pg (27.0-31.0); Mean Corpuscular Volume 101.8 fl (78.0-98.0); Mean Platelet Volume 5.2 fL (7.4-10.4); Platelet Count 224 10x3/uL (130-400); RBC Distribution Width 17.8 % (11.5-14.5); Red Blood Cell (RBC) Count 2.37 mill/uL (4.20-5.40); White Blood Cell (WBC) Count 6.4 10x3/uL (4.8-10.8)
[2024-06-21 05:22] LABS: ALT (SGPT) Less than 7 U/L (8-55); AST (SGOT) 8 U/L (5-34); Albumin 2.2 g/dL (3.4-4.8); Alkaline Phosphatase 48 U/L (40-110); Anion Gap 15 mmol/L (10-20); BUN (Urea Nitrogen) 12 mg/dL (9.8-20.1); Bilirubin, Total 0.2 mg/dL (0.2-1.2); Calc. Creatinine Clearance 36 mL/min (70-130); Calcium 8.2 mg/dL (7.8-10.44); Carbon Dioxide 17 mmol/L (23-31); Chloride 107 mmol/L (98-107); Estimated GFR 69; Globulin 1.6 g/dL (2.4-3.5); Glucose 83 mg/dL (83-110); Potassium 4.4 mmol/L (3.5-5.1); Protein, Total 3.8 g/dL (5.8-8.1); Sodium 135 mmol/L (136-145)
[2024-06-21] MEDS: Acetaminophen/Codeine 30-300mg Tablet PO PRN (06:20)
[2024-06-21] MEDS: Nystatin Cream 15 GM TUBE ONE (08:20)
[2024-06-21] MEDS: Carvedilol 6.25 MG TAB PO SCH (08:21)
[2024-06-21] MEDS: Zinc Sulfate 220 MG CAP PO SCH (08:21)
[2024-06-21] MEDS: Pantoprazole DR 40 MG TAB PO SCH (08:22)
[2024-06-21] MEDS: Nystatin Cream 15 GM TUBE TOP SCH (08:22)
[2024-06-21] MEDS: Clopidogrel Bisulfate 75 MG TAB PO SCH (08:22)
[2024-06-21] MEDS: Aspirin 81 mg Enteric Coated Tablet PO SCH (08:22)
[2024-06-21] MEDS: Atorvastatin Calcium 10 MG TAB PO SCH (20:46)
[2024-06-21] MEDS: traZODone HCl 50 MG TAB PO SCH (20:47)
[2024-06-22] MEDS: Furosemide 40 MG TAB PO SCH (08:19)
[2024-06-22 08:23] VITALS: BMI 21.3
[2024-06-22] MEDS: Ondansetron ODT 4 MG TAB PO PRN (13:21)
[2024-06-22] MEDS: Megestrol Acetate 400 MG/10 ML UDCUP PO SCH (21:44)
[2024-06-26] MEDS: Acetaminophen 325 MG TAB PO PRN (20:25)
[2024-06-28 07:38] VITALS: BP 104/58; TEMP 99.1
[2024-06-28 09:06] LABS: Hematocrit 29.2 % (36.0-47.0); Mean Corpuscular HGB CONC 30.8 g/dL (32.0-36.0); Mean Corpuscular Hemoglobin 32.9 pg (27.0-31.0); Mean Corpuscular Volume 106.7 fl (78.0-98.0); Mean Platelet Volume 5.7 fL (7.4-10.4); Platelet Count 245 10x3/uL (130-400); RBC Distribution Width 18.1 % (11.5-14.5); Red Blood Cell (RBC) Count 2.74 mill/uL (4.20-5.40); White Blood Cell (WBC) Count 7.5 10x3/uL (4.8-10.8)
[2024-06-28 09:16] LABS: Anion Gap 14 mmol/L (10-20); BUN (Urea Nitrogen) 33 mg/dL (9.8-20.1); Calc. Creatinine Clearance 25 mL/min (70-130); Calcium 9.1 mg/dL (7.8-10.44); Carbon Dioxide 20 mmol/L (23-31); Chloride 106 mmol/L (98-107); Estimated GFR 45; Glucose 126 mg/dL (83-110); Potassium 3.8 mmol/L (3.5-5.1); Sodium 136 mmol/L (136-145)
== END 2024-06-28 13:20 | disposition home or self-care (01) | DRG 947 ==
LOC: MADMS 20:15
PROVIDERS: ADMIT Family Medicine; ATTEND Family Medicine
DX: R53.81 Other malaise (principal); G93.41 Metabolic encephalopathy; N17.9 Acute kidney failure, unspecified; E87.20 Acidosis, unspecified; R33.9 Retention of urine, unspecified; Z66 Do not resuscitate; E03.9 Hypothyroidism, unspecified; G40.909 Epilepsy, unspecified, not intractable, without status epilepticus; I10 Essential (primary) hypertension; E11.9 Type 2 diabetes mellitus without complications; E87.6 Hypokalemia; G31.84 Mild cognitive impairment of uncertain or unknown etiology; E86.1 Hypovolemia; I25.10 Atherosclerotic heart disease of native coronary artery without angina pectoris; R62.7 Adult failure to thrive; Z68.21 Body mass index [BMI] 21.0-21.9, adult; Z79.82 Long term (current) use of aspirin; Z79.899 Other long term (current) drug therapy
CPT/HCPCS: 36415; 36416; 80048; 80053; 81001; 85025; 85027; Q0162

== ENCOUNTER 2024-07-13 08:58 | Emergency (ER) | payer MEDICARE ==
[2024-07-13 10:24] LABS: ALT (SGPT) 9 U/L (8-55); AST (SGOT) 12 U/L (5-34); Albumin 3.6 g/dL (3.4-4.8); Alkaline Phosphatase 47 U/L (40-110); Anion Gap 16 mmol/L (10-20); BUN (Urea Nitrogen) 35 mg/dL (9.8-20.1); Bilirubin, Total 0.4 mg/dL (0.2-1.2); CK (CPK) 42 U/L (29-168); Calc. Creatinine Clearance 0 mL/min (70-130); Calcium 9.5 mg/dL (7.8-10.44); Carbon Dioxide 15 mmol/L (23-31); Chloride 113 mmol/L (98-107); Estimated GFR 33; Globulin 2.4 g/dL (2.4-3.5); Glucose 90 mg/dL (83-110); Magnesium 1.9 mg/dL (1.6-2.6); Potassium 4.2 mmol/L (3.5-5.1); Sodium 140 mmol/L (136-145)
[2024-07-13 10:25] LABS: #Basophils 0.1 thou/uL (0.0-0.2); #Lymphocytes 1.7 thou/uL (1.20-3.40); #Monocytes 1.2 thou/uL (0.11-0.59); #Neutrophils 11.6 thou/uL (1.40-6.50); %Basophils 0.9 % (0.0-1.0); %Eosinophils 0.3 % (0.0-10.0); %Lymphocytes 11.8 % (21.0-51.0); %Monocytes 7.9 % (0.0-10.0); %Neutrophils 79.2 % (42.0-75.0); Hematocrit 33.4 % (36.0-47.0); Hemoglobin 10.8 g/dL (12.0-16.0); Mean Corpuscular HGB CONC 32.2 g/dL (32.0-36.0); Mean Corpuscular Hemoglobin 34.9 pg (27.0-31.0); Mean Corpuscular Volume 108.1 fl (78.0-98.0); Mean Platelet Volume 5.8 fL (7.4-10.4); Platelet Count 356 10x3/uL (130-400); Red Blood Cell (RBC) Count 3.09 mill/uL (4.20-5.40); White Blood Cell (WBC) Count 14.6 10x3/uL (4.8-10.8)
[2024-07-13 10:27] LABS: Anisocytosis SLIGHT = 6-15 cells (100X) (0-5/hpf)
[2024-07-13 10:28] LABS: Macrocytosis SLIGHT = 6-15 cells (100X) (0-5/hpf); Platelet Adequacy Comment Appears Adequate
[2024-07-13 12:54] LABS: Bilirubin Negative (Negative); Blood, Urine Negative (Negative); Clarity Slightly Cloudy (Clear); Glucose, Urine (Dipstick) Negative (Negative); Ketone, Urine Negative (Negative); Leukocyte Negative (Negative); Nitrite Negative (Negative); Protein, Urine (Dipstick) Negative (Neg-Trace); pH, Urine 6.5 (5.0-9.0)
[2024-07-13 12:55] LABS: CAUTI Indications for Culture Alt mental st,lethar; RBC/HPF 0-3 HPF (0-3); Squamous Epithelial 0-3 HPF (0-3)
[2024-07-13 12:56] LABS: Bacteria/HPF 4+ HPF (None Seen)
[2024-07-13 12:57] LABS: Urine Culture Reflex Yes Yes
[2024-07-13] MEDS ORDERED: Aspirin Chewable 81 MG TAB ONE (13:39)
== END 2024-07-13 17:54 | disposition short-term general hospital (02) ==
LOC: MADERS 08:58
DX: G93.40 Encephalopathy, unspecified (principal); R82.71 Bacteriuria; D72.829 Elevated white blood cell count, unspecified; E87.20 Acidosis, unspecified; I13.0 Hypertensive heart and chronic kidney disease with heart failure and stage 1 through stage 4 chronic kidney disease, or unspecified chronic kidney disease; N18.9 Chronic kidney disease, unspecified; I50.9 Heart failure, unspecified; I25.10 Atherosclerotic heart disease of native coronary artery without angina pectoris; Z79.82 Long term (current) use of aspirin; Z79.899 Other long term (current) drug therapy
CPT/HCPCS: 36415; 51701; 70450; 71045; 80053; 81001; 82550; 83605; 83735; 85025; 87040; 87077; 87086; 87186; 93005; 94760; 96360; 96361

== ENCOUNTER 2024-07-18 16:53 | Inpatient (IN) | payer MEDICARE ==
[2024-07-18 21:32] VITALS: BMI 19.0
[2024-07-18] MEDS: levETIRAcetam 500 MG TAB PO SCH ×2 (22:29→22:36)
[2024-07-18] MEDS: Sertraline 25 MG TAB PO SCH (22:35)
[2024-07-18] MEDS: Sodium Bicarbonate Tab 325 MG TAB PO SCH (22:35)
[2024-07-18] MEDS: Tamsulosin HCl 0.4 MG CAP PO SCH (22:36)
[2024-07-18] MEDS: traZODone HCl 50 MG TAB PO SCH (22:36)
[2024-07-19 07:12] VITALS: BP 160/74; TEMP 98.9
[2024-07-19] MEDS: Folic Acid 1 MG TAB PO SCH (08:25)
[2024-07-19] MEDS: Enoxaparin 30 MG (0.3 mL) SYRINGE SC SCH (08:25)
[2024-07-19] MEDS: Carvedilol 6.25 MG TAB PO SCH (08:26)
[2024-07-19] MEDS: Zinc Sulfate 220 MG CAP PO SCH (08:26)
[2024-07-19] MEDS: Aspirin 81 mg Enteric Coated Tablet PO SCH (08:26)
[2024-07-19] MEDS: Clopidogrel Bisulfate 75 MG TAB PO SCH (08:28)
[2024-07-19] MEDS: FLU (Fluad Triv) TS24-25 (65UP)/MF59C/PF 45 MCG/0.5 ML Syringe IM ONE (08:30)
[2024-07-19] MEDS: levETIRAcetam 500 MG TAB PO SCH (08:31)
[2024-07-19] MEDS: Losartan 25 MG TAB PO SCH (08:31)
[2024-07-19] MEDS: Nystatin Cream 15 GM TUBE TOP SCH (08:31)
[2024-07-19] MEDS: Pantoprazole DR 40 MG TAB PO SCH (08:32)
[2024-07-19] MEDS ORDERED: Zinc Sulfate 220 MG CAP PO SCH (09:00)
[2024-07-19] MEDS: LevoFLOXacin 250 MG TAB PO SCH (13:20)
[2024-07-19] MEDS: Acetaminophen/Codeine 30-300mg Tablet PO PRN (17:44)
[2024-07-19] MEDS ORDERED: traZODone HCl 50 MG TAB PO SCH (21:00)
[2024-07-19] MEDS ORDERED: Atorvastatin Calcium 10 MG TAB PO SCH (21:00)
[2024-07-20] MEDS ORDERED: Furosemide 40 MG TAB PO SCH (09:00)
== END 2024-07-19 18:25 | disposition hospice, home (50) | DRG 947 ==
LOC: MADMS 21:25
PROVIDERS: ADMIT Family Medicine; ATTEND Family Medicine
DX: R53.81 Other malaise (principal); I63.9 Cerebral infarction, unspecified; I50.32 Chronic diastolic (congestive) heart failure; N39.0 Urinary tract infection, site not specified; Z66 Do not resuscitate; E78.5 Hyperlipidemia, unspecified; I25.10 Atherosclerotic heart disease of native coronary artery without angina pectoris; E11.9 Type 2 diabetes mellitus without complications; R41.89 Other symptoms and signs involving cognitive functions and awareness; I11.0 Hypertensive heart disease with heart failure; R33.9 Retention of urine, unspecified; G40.909 Epilepsy, unspecified, not intractable, without status epilepticus; Z95.1 Presence of aortocoronary bypass graft; Z90.49 Acquired absence of other specified parts of digestive tract; Z98.891 History of uterine scar from previous surgery; Z98.890 Other specified postprocedural states